=== PATIENT | male | born 1970 | race Caucasian/White ===

== ENCOUNTER → 2016-09-29 | Outpatient (CLI) | payer BC ==
[~2016-09-29] VITALS: Ht 170.2 cm; Wt 65.8 kg
[~2016-09-29] MED LIST: DIATRIZOATE 30% 300 ML (CYSTOGRAFIN) VIAL UR ONE
--- NOTE | 2016-09-29 09:43 | Diagnostic Imaging Report ---
EXAMINATION: Retrograde cystourethrogram. INDICATION: Urethral stricture. TECHNIQUE: Retrograde injection through a syringe into the penile urethra through the external meatus was performed. This was slightly difficult as the injection kept leaking from around the external meatus without filling of the strictured area in the posterior aspect of the penile urethra. Eventually, injection and imaging of the stricture were successful. FLUOROSCOPY TIME: 2 minutes and 6 seconds. CONTRAST: A total of 160 cc of Cystografin was utilized. FINDINGS: There is about a 4 cm length of moderate to severe stricture with a tight narrowing in its anterior aspect. The stricture is involving the bulbar urethra and extending to the posterior aspect of the penile urethra. Contrast did not extend more proximally, presumably related to sphincteric normal function. IMPRESSION: There is an approximately 4 cm long moderate to severe stricture in the bulbar urethra extending to the posterior aspect of the penile urethra. Dictated by: Dictated on workstation # [id number]
== END ==
LOC: RAD 08:35
PROVIDERS: ATTEND Urology
DX: N35.9 Urethral stricture, unspecified (principal)
CPT/HCPCS: 74450

== ENCOUNTER 2023-05-25 22:53 | Emergency (ER) | payer BC ==
[2023-05-25 23:01] VITALS: BP 146/112
[2023-05-25 23:13] LABS: BASOPHILS # (AUTO) 0.1 10^3/uL (0.0-0.1); BASOPHILS % (AUTO) 1 % (0-10); EOSINOPHILS # (AUTO) 0.2 10^3/uL (0.0-0.3); EOSINOPHILS % (AUTO) 3 % (0-10); HEMATOCRIT 45 % (40-54); HEMOGLOBIN 15.7 g/dL (13.3-17.7); LYMPHOCYTES # (AUTO) 2.8 10^3/uL (1.0-4.0); LYMPHOCYTES % (AUTO) 34 % (12-44); MEAN CORPUSCULAR HEMOGLOBIN 33 pg (25-34); MEAN CORPUSCULAR HGB CONC 35 g/dL (32-36); MEAN CORPUSCULAR VOLUME 93 fL (80-99); MONOCYTES % (AUTO) 11 % (0-12); NEUTROPHILS # (AUTO) 4.1 10^3/uL (1.8-7.8); NEUTROPHILS % (AUTO) 49 % (42-75); PLATELET COUNT 269 10^3/uL (130-400); WHITE BLOOD COUNT 8.4 10^3/uL (4.3-11.0)
[2023-05-25] MEDS ORDERED: fentaNYL INJECTION 100 MCG/2 ML VIAL IVP ONE (23:15)
[2023-05-25 23:22] LABS: ALBUMIN 4.4 GM/DL (3.2-4.5); POTASSIUM 3.8 MMOL/L (3.6-5.0)
[2023-05-25 23:23] LABS: CALCIUM 9.1 MG/DL (8.5-10.1)
[2023-05-25 23:25] LABS: TOTAL PROTEIN 7.6 GM/DL (6.4-8.2)
[2023-05-25 23:26] LABS: BILIRUBIN,TOTAL 0.5 MG/DL (0.1-1.0)
[2023-05-25 23:28] LABS: CREATININE SERUM 1.05 MG/DL (0.60-1.30)
[2023-05-25 23:31] LABS: ERYTHROCYTE SEDIMENTATION RATE 5 MM/HR (0-30); MAGNESIUM 2.4 MG/DL (1.6-2.4)
[2023-05-25 23:51] LABS: TSH (THYROID ANALYZER) 1.83 UIU/ML (0.35-4.94)
[2023-05-26] MEDS ORDERED: KETOROLAC INJ 30 MG/ML VIAL IVP ONE (00:15)
[2023-05-26] MEDS ORDERED: LACTATED RINGERS 1,000 ML 1,000 ML IV ONE (00:15)
[2023-05-26] MEDS ORDERED: cefTRIAXone IV/IM 1,000 MG in NS (IVPB) 50 ML 50 ML IV STA (00:17)
--- NOTE | 2023-05-26 00:23 | ED Headache ---
General Chief Complaint: Head/Cervical Problems Stated Complaint: CHRONIC HEADACHE, DISTORTED VISION Nursing Triage Note: Pt presents with c/o headache behind L eye. He reports pain off and on for approx 2 weeks. Pt states he has hx of migraine. 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 He has a history of chronic headaches. He feels like the pain is focused behind his left eye. He has been trying Tylenol and ibuprofen as well as hot showers. These interventions are usually effective in aborting headaches. However, he has not been able to satisfactorily treat his headache tonight. He arrives by private vehicle accompanied by his . He is hollering out from pain. He complains about the light hurting his eyes even when his eyes are covered by a pillow or towel. He has been afebrile. He denies nausea or vomiting. His reports he complained of diplopia earlier in the day. He reportedly has severe insomnia. He also is a daily consumer of alcohol and generally consumes at least 2 beers. He often adds mixed drinks of hard alcohol to his beer. He denies any tobacco or drug use. Dr. Fofana is his primary care provider. He went to his iropractor today and had brief relief but pain quickly rebounded. Allergies and Home Medications Allergies Coded Allergies: No Allergy Information Available (Unverified , 09/29/16) Patient Home Medication List Home Medication List Reviewed: Yes Amoxicillin (Amoxicillin) 500 Mg Capsule, 1,000 MG PO TID Prescribed by: АННА DOYLE on 05/26/2344 Fluticasone Propionate (Flonase Allergy Relief) 50 Mcg/Actuation [place].susp, 2 SPRAY NSEACH DAILY Prescribed by: АННА DOYLE on 05/26/2344 Review of Systems Review of Systems Constitutional: no symptoms reported Eyes: See HPI Ears, Nose, Mouth, Throat: see HPI Respiratory: no symptoms reported Cardiovascular: no symptoms reported Gastrointestinal: no symptoms reported Genitourinary: no symptoms reported Musculoskeletal: no symptoms reported Skin: see HPI Psychiatric/Neurological: See HPI Past Zwgseyy-[id number]-Lhcbqh Hx Patient Social History Tobacco Use?: No Use of E-Cig and/or Vaping dev: No Substance use?: No Alcohol Use?: Yes Alcohol type: Beer, Hard Liquor Alcohol Frequency: Daily Immunizations Up To Date Influenza Vaccine Up-to-Date: No; Not Current Past Medical History Surgeries: Yes (urethroplasty) Respiratory: No Cardiac: No Neurological: Yes Headaches /Migraines Genitourinary: No Gastrointestinal: Yes Gastroesophageal Reflux Musculoskeletal: Yes (chronic pain) Endocrine: No HEENT: No Cancer: No Psychosocial: Yes ADD/ADHD, Sleep Difficulties Integumentary: No Physical Exam Vital Signs Vital Signs - First Documented 05/25/23 23:01 Temp 36.0 Pulse 93 Resp 16 B/P (MAP) 146/112 (123) Capillary Refill : Less Than 3 Seconds Height, Weight, BMI Height: 5'7.00" Weight: 145lbs. 0.0oz. [id number]; 22.7 BMI Method: General Appearance: WD/WN, moderate distress, thin HEENT: PERRL/EOMI, normal ENT inspection, TMs normal, other (Oropharynx pasty. Mild tenderness over the left maxilla) Neck: normal inspection Cardiovascular: regular rate, rhythm, no edema, no murmur Respiratory: lungs clear, normal breath sounds, no respiratory distress, no accessory muscle use Extremities: normal inspection, no pedal edema Psychiatric: alert, oriented x 3, other (Agitated, hollers out at times) Crainal Nerves: normal hearing, normal speech, PERRL Motor/Sensory: no motor deficit, no sensory deficit Skin: normal color, warm/dry Progress/Results/Core Measures Results/Orders Lab Results Laboratory Tests Test 05/25/23 23:05 05/26/23 00:09 Range/Units White Blood Count 8.4 4.3-11.0 10^3/uL Red Blood Count 4.78 4.30-5.52 10^6/uL Hemoglobin 15.7 13.3-17.7 g/dL Hematocrit 45 40-54 % Mean Corpuscular Volume 93 80-99 fL Mean Corpuscular Hemoglobin 33 25-34 pg Mean Corpuscular Hemoglobin Concent 35 32-36 g/dL Red Cell Distribution Width 12.8 10.0-14.5 % Platelet Count 269 130-400 10^3/uL Mean Platelet Volume 10.0 9.0-12.2 fL Immature Granulocyte % (Auto) 2 % Neutrophils (%) (Auto) 49 42-75 % Lymphocytes (%) (Auto) 34 12-44 % Monocytes (%) (Auto) 11 0-12 % Eosinophils (%) (Auto) 3 0-10 % Basophils (%) (Auto) 1 0-10 % Neutrophils # (Auto) 4.1 1.8-7.8 10^3/uL Lymphocytes # (Auto) 2.8 1.0-4.0 10^3/uL Monocytes # (Auto) 1.0 0.0-1.0 10^3/uL Eosinophils # (Auto) 0.2 0.0-0.3 10^3/uL Basophils # (Auto) 0.1 0.0-0.1 10^3/uL Immature Granulocyte # (Auto) 0.2 H 0.0-0.1 10^3/uL Erythrocyte Sedimentation Rate 5 0-30 MM/HR Sodium Level 139 135-145 MMOL/L Potassium Level 3.8 3.6-5.0 MMOL/L Chloride Level 108 H 98-107 MMOL/L Carbon Dioxide Level 19 L 21-32 MMOL/L Anion Gap 12 5-14 MMOL/L Blood Urea Nitrogen 9 7-18 MG/DL Creatinine 1.05 0.60-1.30 MG/DL Estimat Glomerular Filtration Rate 85 BUN/Creatinine Ratio 9 Glucose Level 110 H 70-105 MG/DL Calcium Level 9.1 8.5-10.1 MG/DL Corrected Calcium 8.8 8.5-10.1 MG/DL Magnesium Level 2.4 1.6-2.4 MG/DL Total Bilirubin 0.5 0.1-1.0 MG/DL Aspartate Amino Transf (AST/SGOT) 31 5-34 U/L Alanine Aminotransferase (ALT/SGPT) 37 0-55 U/L Alkaline Phosphatase 63 40-136 U/L C-Reactive Protein High Sensitivity 0.48 0.00-0.50 MG/DL Total Protein 7.6 6.4-8.2 GM/DL Albumin 4.4 3.2-4.5 GM/DL TSH [place] Testing 1.83 0.35-4.94 UIU/ML Serum Alcohol 149 H <10 MG/DL Influenza Type A (RT-PCR) Not Detected Not Detecte Influenza Type B (RT-PCR) Not Detected Not Detecte SARS-CoV-2 RNA (RT-PCR) Not Detected Not Detecte My Orders Orders - АННА GUZMAN MD Fentanyl Injection (Fentanyl Injection (05/25/23 23:15) Lorazepam Injection (Lorazepam Injection (05/25/23 23:15) Alcohol (05/25/23 23:08) Cbc And Automated Diff (05/25/23:) Comprehensive Metabolic Panel (05/25/23:) Hs C Reactive Protein (05/25/23:) Magnesium (05/25/23:) Thyroid Analyzer (05/25/23:) Erythrocyte Sedimentation Rate (05/25/23:) Ed Iv/Invasive Line Start (05/25/23:) Monitor-Rhythm Ecg Trace Only (05/25/23:) Ct Head Wo-R/O Stroke (05/25/23 23:) Covid 19 Inhouse Test (05/25/23 23:11) Influenza A And B By Pcr (05/25/23 23:11) Lactated Ringers 1,000 Ml (Lactated Ring (05/26/23 00:15) Ketorolac Injection (Ketorolac Injection (05/26/23 00:15) Ceftriaxone Iv/Im (Ceftriaxone Iv/Im) (05/26/23 00:17) Pantoprazole Tablet (Pantoprazole Tablet (05/26/23 01:00) Medications Given in ED Vital Signs/I&O 05/25/23 23:01 Temp 36.0 Pulse 93 Resp 16 B/P (MAP) 146/112 (123) Blood Pressure Mean: 123 Progress Progress Note : Time: 00:38 Progress Note Patient was interviewed and examined very shortly after arrival. was eventually also interviewed. CT of the head was obtained promptly due to the intense and persistent nature of his pain. CT of the brain was unremarkable by my interpretation. I did appreciate opacified left maxillary sinus. These interpretations were reiterated by the radiologist's [facility] report. Labs were also obtained. Patient did not appear to have severe infection as his WBC, CRP, and ESR were all normal. He was also afebrile. CBC and CMP were unremarkable with no clinically relevant abnormalities. Influenza and COVID-19 swabs were negative. Serum alcohol level was 149. Patient was treated with fentanyl 75 mcg and Ativan 0.5 mg to help with his pain and agitation. Pain completely resolved. Rocephin is being administered for the sinusitis. Toradol 15 mg IV is being administered to help prevent rebound of pain tonight. Patient is being hydrated with a liter of IV fluid. Oddly, patient would complain of the light hurting his eyes when his eyes were covered with a pillow or towel. However, when his eyes were exposed for examination, light did not seem to bother him. Diagnostic Imaging Diagonstic Imaging: CT Plain Films/CT/US/NM/MRI: head Comments NAME: TOMI CHAMPION [facility] REC#: [id number] PT STATUS: DEP ER : 1970 PHYSICIAN: АННА GUZMAN MD ADMIT DATE: 05/25/23/ER Signed Date of Exam:05/25/23 CT HEAD WO-R/O STROKE PROCEDURE: CT head wo r/o stroke. TECHNIQUE: Multiple contiguous axial images were obtained through the brain without the use of intravenous contrast. Auto Exposure Controls were utilized during the CT exam to meet ALARA standards for radiation dose reduction. INDICATION: Neuro deficit, stroke, chronic headaches. COMPARISON: None available. FINDINGS: No intracranial hemorrhage. No intracranial mass, mass effect, midline shift, herniation, hydrocephalus, or extra-axial fluid collection. Small hypodensity is noted involving the inferior aspect of the right basal ganglia. This is felt to relate to chronic lacunar infarction versus dilated perivascular space. The orbits are unremarkable. No CT evidence of an acute ischemic infarction. Complete opacification of the left maxillary sinus with minimal mucosal thickening within the right maxillary sinus. The calvarium and extracalvarial soft tissues are unremarkable. IMPRESSION: No acute intracranial abnormality. Complete opacification of the left maxillary sinus. Should there remain clinical concern for recent infarction, further evaluation with MRI of the brain would be recommended. Agree with preliminary interpretation. Dictated by: Dictated on workstation # [id number] Dict: 05/26/23 0810 Trans: 05/26/231702 [id number] Interpreted by: YARITZA VERDE MD Electronically signed by: YARITZA VERDE MD 11/16/23 1703 Departure Impression Primary Impression: Acute headache Qualified Codes: R51.9 - Headache, unspecified Additional Impressions: Left maxillary sinusitis Agitation Daily consumption of alcohol Insomnia Qualified Codes: G47.00 - Insomnia, unspecified Disposition: 01 HOME, SELF-CARE Condition: Improved Departure-Patient Inst. Decision time for Depature: 00:42 Referrals: FLORY FOFANA MD (PCP/Family) Primary Care Physician Patient Instructions: Sinusitis in adults Add. Discharge Instructions: Complete your antibiotics as prescribed. Please follow-up with your primary care provider before completion of the antibiotics for reevaluation. Your course of antibiotics may need to be extended if symptoms are persisting. Also use Flonase nasal spray to help reduce inflammation and to encourage sinuses to drain. Apply 2 sprays in each nostril twice daily for the first several days, then 2 sprays in each nostril daily thereafter. You may take ibuprofen up to 600 mg every 6 hours and/or Tylenol (acetaminophen) up to 1000 mg every 6 hours as needed for pain. Gradually reduce your alcohol consumption until you are able to stop completely. Avoid stopping alcohol abruptly as this may cause life-threatening withdraws. It is important to taper down on the quantity of alcohol consumed over a period of several days or weeks. Your daily alcohol use likely is contributing to insomnia and sinusitis. Please follow-up with your primary care provider soon as possible to discuss your sinusitis, insomnia, and alcohol cessation. Return to the ER if you have worsening symptoms despite following these instructions. All discharge instructions reviewed with patient and/or family. Voiced understanding. Scripts Fluticasone Propionate (Flonase Allergy Relief) 50 Mcg/Actuation [place].susp 2 SPRAY NSEACH DAILY, #1 EACH 2 SPRAYS PER NOSTRIL DAILY X 2 DAYS THEN 1 SPRAY DAILY Prov: АННА GUZMAN MD 05/26/23 Amoxicillin (Amoxicillin) 500 Mg Capsule 1000 MG PO TID, #60 CAP 0 Refills Prov: АННА GUZMAN MD 05/26/23 Copy Copies To 1: FLORY FOFANA MD, JOSHUA T MD May 26, 2023 00:22
[2023-05-26] MEDS ORDERED: AMOX500C2 PO (00:45)
[2023-05-26] MEDS ORDERED: FLUT9.9S NSEACH (00:45)
[2023-05-26] MEDS ORDERED: PANTOPRAZOLE 40 MG TABLET PO ONE (01:00)
--- NOTE | 2023-05-26 08:24 | Diagnostic Imaging Report ---
PROCEDURE: CT head wo r/o stroke. TECHNIQUE: Multiple contiguous axial images were obtained through the brain without the use of intravenous contrast. Auto Exposure Controls were utilized during the CT exam to meet ALARA standards for radiation dose reduction. INDICATION: Neuro deficit, stroke, chronic headaches. COMPARISON: None available. FINDINGS: No intracranial hemorrhage. No intracranial mass, mass effect, midline shift, herniation, hydrocephalus, or extra-axial fluid collection. Small hypodensity is noted involving the inferior aspect of the right basal ganglia. This is felt to relate to chronic lacunar infarction versus dilated perivascular space. The orbits are unremarkable. No CT evidence of an acute ischemic infarction. Complete opacification of the left maxillary sinus with minimal mucosal thickening within the right maxillary sinus. The calvarium and extracalvarial soft tissues are unremarkable. IMPRESSION: No acute intracranial abnormality. Complete opacification of the left maxillary sinus. Should there remain clinical concern for recent infarction, further evaluation with MRI of the brain would be recommended. Agree with preliminary interpretation. Dictated by: Dictated on workstation # [id number]
== END 2023-05-26 01:19 | disposition home or self-care (01) ==
LOC: EDUNIT# 22:53 → ER 23:04
DX: J32.0 Chronic maxillary sinusitis (principal); G47.00 Insomnia, unspecified; F10.20 Alcohol dependence, uncomplicated; Y90.6 Blood alcohol level of 120-199 mg/100 ml
CPT/HCPCS: 70450; 80053; 83735; 84443; 85025; 85652; 86141; 87636; 96361; 96365; 96375; 99284; G0480; 36415; 80320